=== PATIENT | female | born 1985 | race Caucasian/White ===

== ENCOUNTER 2019-10-17 10:08 | Emergency (ER) | payer SELFPAY ==
--- NOTE | 2019-10-17 10:23 | ER Document Report ---
ED Medical Screen (RME) - General Chief Complaint: Wrist Injury Stated Complaint: LEFT WRITST INJURY Time Seen by Provider: 10/17/19 10:13 Mode of Arrival: Ambulatory Information source: Patient Cannot obtain history due to: Other - This is a 33-year-old female presented to the emergency room today stating that she had been doing some weight lifting specifically she was doing a squat with approximately 370 pounds when the weight curled back and bent her wrist in awkward position she heard a pop felt that her muscle looked funny and feels as though there is probably a deformity at that area she has good distal pulses loosefitting splint is applied will get an x-ray to evaluate further. - HPI Onset: Just prior to arrival Quality of pain: Achy, Dull Associated Symptoms: None Exacerbated by: Denies Similar symptoms previously: Yes Recently seen / treated by doctor: Yes - Related Data Smoking: Non-smoker Frequency of alcohol use: None Drug Abuse: None Allergies/Adverse Reactions: No Known Allergies Allergy (Verified 10/17/19 10:16) Past Medical History - General Information source: Patient - Social History Cigarette use (# per day): No Frequency of alcohol use: Rare Physical Exam - Vital signs Vitals: Temp Pulse Resp BP Pulse Ox 98.4 F 79 20 141/82 H 100 10/17/19 10:10/17/19 10:10/17/19 10:10/17/19 10:10/17/19 10:09 - Extremities General upper extremity: Normal inspection, Nontender, Normal color, Normal ROM, Normal temperature General lower extremity: Normal inspection, Nontender, Normal color, Normal ROM, Normal temperature, Normal weight bearing. No: Rosalie's sign Wrist: Tender, Instability, Limited ROM Course - Vital Signs Vital signs: Temp Pulse Resp BP Pulse Ox 98.4 F 79 20 141/82 H 100 10/17/19 10:10/17/19 10:10/17/19 10:10/17/19 10:10/17/19 10:09
--- NOTE | 2019-10-17 10:49 | RADIOLOGY REPORT (SQ) ---
EXAM DESCRIPTION: WRIST LEFT 3 VIEWS COMPLETED DATE/TIME: 10/17/2019 10:35 am REASON FOR STUDY: pain COMPARISON: None. NUMBER OF VIEWS: Three views left wrist LIMITATIONS: None. FINDINGS: Minimally comminuted fracture through the distal shaft of the radius. At least 1 shaft di ameter palmar displacement. Carpus proper looks intact without malalignment or fracture. OTHER: No other significant finding. IMPRESSION: Distal radial fracture with displacement. TECHNICAL DOCUMENTATION: JOB ID: [id number] Reading location - IP/workstation name: [email or web address]
[2019-10-17] MEDS ORDERED: ONDANSETRON 4 MG TAB.RAPDIS PO ONE (11:15)
[2019-10-17] MEDS ORDERED: OXYCODONE-ACETAMINOPHEN 5-325 MG TABLET PO ONE (11:15)
[2019-10-17 12:33] VITALS: BP 116/72
--- NOTE | 2019-10-21 12:09 | ER Document Report ---
Entered by LORA BAILEY SCRIBE 10/17/19 1054 Acting as scribe for:MARY KOEHLER MD ED General - General Chief Complaint: Arm Injury Stated Complaint: LEFT WRITST INJURY Time Seen by Provider: 10/17/19 10:13 Mode of Arrival: Ambulatory Information source: Patient Notes: This 33 year old female patient presents to the emergency department today with an arm injury. Patient states she was lifting 369 lbs this morning while squatting in the gym. Patient states the bar holding the weights went down her back and bent her left arm backwards. Patient states there is not any pain other than in her left arm. TRAVEL OUTSIDE OF THE [place] IN LAST 30 DAYS: No - Related Data Allergies/Adverse Reactions: No Known Allergies Allergy (Verified 10/17/19 10:16) Past Medical History - General Information source: Patient - Social History Smoking Status: Never Smoker Cigarette use (# per day): No Chew tobacco use (# tins/day): No Frequency of alcohol use: Rare Drug Abuse: None Family History: None Patient has suicidal ideation: No Patient has homicidal ideation: No Review of Systems - Review of Systems Constitutional: No symptoms reported EENT: No symptoms reported Cardiovascular: No symptoms reported Respiratory: No symptoms reported Gastrointestinal: No symptoms reported Genitourinary: No symptoms reported Female Genitourinary: No symptoms reported Musculoskeletal: See HPI, Other - Pain in left arm. Skin: No symptoms reported Hematologic/Lymphatic: No symptoms reported Neurological/Psychological: No symptoms reported -: Yes All other systems reviewed and negative Physical Exam - Vital signs Vitals: Temp Pulse Resp BP Pulse Ox 98.4 F 79 20 141/82 H 100 10/17/19 10:09 10/17/19 10:09 10/17/19 10:09 10/17/19 10:09 10/17/19 10:09 - General General appearance: Appears well, Alert - HEENT Head: Normocephalic, Atraumatic Eyes: Normal Pupils: PERRL - Respiratory Respiratory status: No respiratory distress Chest status: Nontender Breath sounds: Normal - Cardiovascular Rhythm: Regular Heart sounds: Normal auscultation Murmur: No - Abdominal Inspection: Normal Distension: No distension Bowel sounds: Normal Tenderness: Nontender - Extremities General lower extremity: Normal inspection. No: Edema Forearm: Other - Soft tissue swelling of the dorsal left distal forearm. Distal radial fracture of the left forearm. No broken skin. - Neurological Neuro grossly intact: Yes Cognition: Normal Orientation: AAOx4 Alba Coma Scale Motor: Obeys Commands - Psychological Associated symptoms: Normal affect, Normal mood - Skin Skin Temperature: Warm Skin Moisture: Dry Skin Color: Normal Course - Re-evaluation Re-evalutation: 10/17/19 12:20 Patient resting comfortably in a sugar tong splint in her left forearm. Patient is in a sling as well. Patient states pain medication has assisted her pain control. - Vital Signs Vital signs: Temp Pulse Resp BP Pulse Ox 98.0 F 65 17 116/72 100 10/17/19 12:31 10/17/19 12:31 10/17/19 12:31 10/17/19 12:31 10/17/19 12:31 - Diagnostic Test Radiology reviewed: Image reviewed, Reports reviewed Radiology results interpreted by me: 10/17/19 12:03 X-ray of left wrist shows a distal radial fracture with displacement. There is at least 1 shaft diameter palmar displacement of a minimally comminuted fracture of the distal shaft of the radius. No other fractures noted no other significant findings. Procedures - Immobilization Left Distal Arm Immobilizer type: Sugar tong Performed by: Other - senior manufacturing technician Post-Proc Neuro Vasc Exam: Normal Notes: 10/17/19 12:06 Case discussed with the on-call orthopedic doctor Dr. Perez who indicated that a posterior post splinting x-ray was not necessary. Discharge - Discharge Clinical Impression: Distal radius fracture, left Condition: Stable Disposition: HOME, SELF-CARE Additional Instructions: Fractured Radius The bone called the radius is fractured. This type of fracture is typically caused by falling onto the outstretched hand. The fracture is not serious, however, and should heal well with adequate protection. Your physician's evaluation shows the bone is in good position to heal. A cast or splint is used to protect the fracture. For the first few days after the injury, the arm should be elevated and ice packed. Healing takes from three to eight weeks, depending on the age of the patient and the seriousness of the fracture. Your doctor has explained the treatment plan. It's important that you follow up as instructed to prevent complications. Call the doctor or return at once if severe pain or swelling occur, or if the hand becomes numb, swollen, or discolored. Fracture You have a fracture. The typical broken bone requires only protection and sufficient time for healing. "Setting" is necessary only if the bones are crooked or out of position. The physician will re-assess you periodically to make certain that the bone heals without complications. It's important that you follow the instructions given you. The initial treatment is immobilization, elevation of the injury, and cold packs. Not all fractures require a cast. Depending on the location and type of fracture, immobilization may consist of a splint, cast, sling, bulky dressing, or simply rest. The length of time required for healing depends on the location and type of fracture, and on the age of the patient. The treatment plan the physician has outlined for you is customized to your fracture and health condition. Call the doctor or return at once if pain becomes severe, or if severe swelling or numbness develop. You have been placed in a sugar tong forearm splint and sling. We encourage you to follow-up as soon as possible with orthopedic physician of your choice inasmuch as you are from out of town we would like to refer you to our orthopedist if you are in need. Continue immobilization and splint and sling until further evaluation. Return to ER if there is any problems with pain swelling or any neuromotor prob lems in your hand. Prescriptions: Ibuprofen [Ibu] 600 mg PO TID PRN #21 tablet PRN Reason: pain Ibuprofen [Ibu] 600 mg PO TID PRN #21 tablet PRN Reason: pain Oxycodone HCl/Acetaminophen [Percocet 5-325 mg Tablet] 1 - 2 tab PO Q4H PRN #15 tablet PRN Reason: Oxycodone HCl/Acetaminophen [Percocet 5-325 mg Tablet] 1 - 2 tab PO Q4H PRN #15 tablet PRN Reason: Ondansetron [Zofran Odt 4 mg Tablet] 1 - 2 tab PO Q4H PRN #15 tab.rapdis PRN Reason: For Nausea/Vomiting Ondansetron [Zofran Odt 4 mg Tablet] 1 - 2 tab PO Q4H PRN #15 tab.rapdis PRN Reason: For Nausea/Vomiting I personally performed the services described in the documentation, reviewed and edited the documentation which was dictated to the scribe in my presence, and it accurately records my words and actions.
== END 2019-10-17 12:35 | disposition home or self-care (01) ==
LOC: ER 10:08
DX: S52.592A Other fractures of lower end of left radius, initial encounter for closed fracture (principal); X50.0XXA Overexertion from strenuous movement or load, initial encounter; Y93.B3 Activity, free weights; Y92.39 Other specified sports and athletic area as the place of occurrence of the external cause
CPT/HCPCS: 99283; 73110; 29125; S0119